=== PATIENT | male | born 1960 | race Caucasian/White ===

== ENCOUNTER 2017-07-08 10:07 | Day surgery (SDC) | payer OTHER ==
[2017-07-05 08:42] VITALS: BMI 27.1
[2017-07-08] MEDS ORDERED: MIDAZOLAM HCL 2 MG/2 ML SINGLE DOSE VIAL ONE ×2 (12:46→12:49)
--- NOTE | 2017-07-08 14:08 | OP ---
Operative Note - Note: Operative Date: 07/08/17 Pre-Operative Diagnosis: Left kidney stone Operation: Left ESWL Surgeon: Moisés Purvis Anesthesia: Fractional
--- NOTE | 2017-07-08 14:14 | OP ---
Operative Note - Note: Operative Date: 07/08/17 Pre-Operative Diagnosis: Left kidney stone Operation: Left ESWL Findings: 4 mm Left mid pole kidney stone Surgeon: Moisés Purvis Anesthesia: Fractional
[2017-07-08 15:44] VITALS: TEMP 98
[2017-07-08 15:47] VITALS: BP 110/70; PULSE 68
--- NOTE | 2017-07-08 23:07 | OP ---
DATE OF OPERATION: 07/08/2017 PREOPERATIVE DIAGNOSIS: Left kidney stone. POSTOPERATIVE DIAGNOSIS: Left kidney stone. PROCEDURE: Left extracorporeal shock wave lithotripsy. ATTENDING: Luly Purvis M.D. ANESTHESIA: General. OPERATION: Patient was brought in the operating room, placed in a supine position on the operating room table. Ultrasonography and fluoroscopy were performed. A 4-mm left mid pole stone was identified. At this point anesthesia and preoperative antibiotics were given. Shockwave lithotripsy was then started. 3000 impulses of 18 joules of power were administered to the stone with excellent fragmentation noted. No complications noted. Patient tolerated the procedure well. DISPOSITION: The patient to the recovery room. LULY OMER M.D. [id number]
== END 2017-07-08 15:15 | disposition home or self-care (01) ==
LOC: JASU-SURG 10:07
PROVIDERS: ATTEND Urology
PROC: 0TF4XZZ Fragmentation in Left Kidney Pelvis, External Approach (ICD-10-PCS; principal; 2017-07-08 11:45)
DX: N20.0 Calculus of kidney (principal)
CPT/HCPCS: 82962; 94760

== ENCOUNTER 2018-04-28 07:07 | Emergency (ER) | payer OTHER ==
[2018-04-28 07:24] VITALS: BP 119/79; PULSE 81; TEMP 98.4; BMI 25.5
--- NOTE | 2018-04-28 07:45 | PDOC ---
History of Present Illness - General Chief Complaint: Headache Stated Complaint: BODY PAIN/HEADACHE/SUGAR PROBLEM Time Seen by Provider: 04/28/18 07:25 History Source: Patient Exam Limitations: Clinical Condition - History of Present Illness Initial Comments: 04/28/18 07:40 Patient with history of diabetes on glyburide and metformin present with complaint of three-day history of intermittent cramping in bilateral hands and elbows after taking excess medication of his metformin. Patient reported he checks his fingerstick at home and is poorly controlled so he increase the dose of metformin. Patient usually takes thousand milligrams by mouth metformin twice a day and takes extra dose again when he relaxes sugar is high. Patient also taking glyburide in the morning with metformin. Patient reported he watch his diet yesterday and took 1 dose of metformin and sis fingerstick was 140 at night. Patient reported he was treated on metformin and thinks he might have symptoms of lactic acidosis. Patient denies shortness of breath, dizziness, palpitations. Patient denies any other symptoms Timing/Duration: other (3 days) Past History - Past Medical History Allergies/Adverse Reactions: Allergies Allergy/AdvReac Type Severity Reaction Status Date / Time Penicillins Allergy "SWELLING" Verified 07/08/17 11:34 Home Medications: Ambulatory Orders Glyburide 5 mg PO BID 08/15/14 Pravastatin Sodium 80 mg PO DAILY 08/15/14 Tamsulosin HCl [Flomax -] 0.4 mg PO HS 08/15/14 metFORMIN HCL [Glucophage] 1,000 mg PO BID 08/15/14 Allopurinol 300 mg PO DAILY 07/05/17 Canagliflozin [Invokana] 300 mg PO DAILY 07/05/17 Anemia: No Asthma: No Cancer: No Cardiac Disorders: No CVA: No COPD: No CHF: No Dementia: No Diabetes: Yes (NIDDM) GI Disorders: Yes (H/O ACID REFLUX) Disorders: No HTN: No Hypercholesterolemia: Yes Liver Disease: No (FATTY LIVER) Seizures: No Thyroid Disease: No - Surgical History Cardiac Surgery: No GI Surgery: No Orthopedic Surgery: Yes (MENISCUS TEARS X3 KATIE) - Suicide/Smoking/Psychosocial Hx Smoking History: Never smoked Have you smoked in the past 12 months: No If you are a former smoker, when did you quit?: 12YRS Information on smoking cessation initiated: No Hx Alcohol Use: No Drug/Substance Use Hx: No Substance Use Type: None, Alcohol Review of Systems - Review of Systems Able to Perform ROS?: Yes Is the patient limited Finnish proficient: No Constitutional: Yes: Malaise. No: Chills, Fever, Weakness HEENTM: No: Blurred Vision, Recent change in vision Respiratory: No: Symptoms reported, See HPI, Cough, Orthopnea, Shortness of Breath, SOB with Exertion, SOB at Rest, Stridor, Wheezing, Productive cough, Hemoptysis, Other Cardiac (ROS): No: Symptoms Reported, See HPI, Chest Pain, Edema, Irregular Heart Rate, Lightheadedness, Palpitations, Syncope, Chest Tightness, Other ABD/GI: No: Constipated, Diarrhea, Nausea, Vomiting, Abdominal cramping Musculoskeletal: Yes: Muscle Weakness (intermittent muscle cramps to b/l hands and elbows) Neurological: Yes: Tingling (b/l hands). No: Headache, Numbness, Paresthesia, Seizure, Weakness, Ataxia All Other Systems: Reviewed and Negative *Physical Exam - Vital Signs Last Vital Signs Temp Pulse Resp BP Pulse Ox 98.4 F 81 16 119/79 100 04/28/18 07:22 04/28/18 07:22 04/28/18 07:22 04/28/18 07:22 04/28/18 07:22 - Physical Exam General Appearance: Yes: Nourished, Appropriately Dressed. No: Apparent Distress HEENT: positive: Normal ENT Inspection, Pharynx Normal Neck: positive: Supple Respiratory/Chest: positive: Lungs Clear, Normal Breath Sounds. negative: Chest Tender, Respiratory Distress, Accessory Muscle Use Cardiovascular: positive: Regular Rhythm, Regular Rate. negative: Murmur Gastrointestinal/Abdominal: positive: Normal Bowel Sounds, Flat, Soft. negative : Tender, Organomegaly Extremity: positive: Normal Capillary Refill, Normal Inspection, Normal Range of Motion Integumentary: positive: Normal Color, Dry, Warm Neurologic: positive: Fully Oriented, Alert, Normal Mood/Affect, Normal Response , Motor Strength 5/5 Moderate Sedation - Procedure Monitoring Vital Signs: Procedure Monitoring Vital Signs Temperature 98.4 F 04/28/18 07:22 Pulse Rate 81 04/28/18 07:22 Respiratory Rate 16 04/28/18 07:22 Blood Pressure 119/79 04/28/18 07:22 O2 Sat by Pulse Oximetry (%) 100 04/28/18 07:22 ED Treatment Course - LABORATORY CBC & Chemistry Diagram: 04/28/18 07:48 04/28/18 07:48 - ADDITIONAL ORDERS Additional order review: Laboratory Results 04/28/18 07:28 POC Glucometer 178 04/28/18 07:28 POC Glucometer 178 Medical Decision Making - Medical Decision Making 04/28/18 07:45 Patient with h/o poorly controlled DM on invacana, glyburide, and metformin and HPL present with complains of intermittent cramping pains and tingling sensation after self-increasing metformin dose due to glucose not controlled. DX: diabettic neuropathy vs lactic acidosis from metformin CBC,CMP lactic acid and electrolytes labs ordered reassess after labs 04/28/18 10:34 labs with no acute findings. Patient stable for discharge with PCP follow-up. Patient educated on diet and better glucose control. Patient voiced understanding and will follow-up with PCP *DC/Admit/Observation/Transfer Diagnosis at time of Disposition: Malaise, Muscle cramp - Discharge Dispostion Disposition: HOME Condition at time of disposition: Stable Decision to Admit order: No - Referrals Referrals: Chris Bergeron MD [Primary Care Provider] - - Patient Instructions Printed Discharge Instructions: How to Take Care of Your Feet If You Have Diabetes, Lifestyle Changes as Effective as Drugs in Preventing Progression to Diabet Additional Instructions: labs was normal . follow-up with PCP. come back to ED if worsening symptoms. Do no take medication more than prescribed. have better diet and decrease sugar intake to help better diabetes - Post Discharge Activity
[2018-04-28 08:02] LABS: BASO % 0.8 % (0-2.0); EOS % 5.4 % (0-4.5); HEMATOCRIT 45.3 % (35.4-49); HEMOGLOBIN 15.8 GM/dL (11.7-16.9); LYMPH % 30.1 % (8-40); MCH 29.6 pg (25.7-33.7); MCHC 34.9 g/dl (32.0-35.9); MEAN CELL VOLUME 84.9 fl (80-96); MEAN PLT VOLUME 8.8 fl (7.5-11.1); MONO % 7.6 % (3.8-10.2); NEUT % 56.1 % (42.8-82.8); PLATELET COUNT 177 K/MM3 (134-434); RBC 5.34 M/mm3 (4.00-5.60); RDW 14.2 % (11.9-15.9); WHITE BLOOD COUNT 6.8 K/mm3 (4.0-10.0)
[2018-04-28 09:08] LABS: ALBUMIN 4.3 g/dl (3.4-5.0); ALK PHOS 49 U/L (45-117); ANION GAP 7 MMOL/L (8-16); BILIRUBIN,TOTAL 0.4 mg/dL (0.2-1); BLOOD UREA NITROGEN 25 mg/dL (7-18); CALCIUM 8.6 mg/dL (8.5-10.1); CHLORIDE 106 mmol/L (98-107); CO2 24 mmol/L (21-32); GLUCOSE,RANDOM 166 mg/dL (74-106); POTASSIUM 4.4 mmol/L (3.5-5.1); SGOT/AST 17 U/L (15-37); SGPT/ALT 32 U/L (13-61); SODIUM 137 mmol/L (136-145); TOT PROT 7.7 g/dl (6.4-8.2)
== END 2018-04-28 10:33 | disposition home or self-care (01) ==
LOC: JER 07:07
DX: E11.65 Type 2 diabetes mellitus with hyperglycemia (principal); Z79.84 Long term (current) use of oral hypoglycemic drugs; E78.00 Pure hypercholesterolemia, unspecified; K21.9 Gastro-esophageal reflux disease without esophagitis
CPT/HCPCS: 36415; 80053; 82436; 82962; 83605; 84133; 84300; 85025; 99281-25

== ENCOUNTER 2018-11-24 07:12 | Day surgery (SDC) | payer OTHER ==
[2018-11-21 10:20] VITALS: BMI 26.4
[2018-11-24] MEDS ORDERED: MIDAZOLAM HCL 2 MG/2 ML SINGLE DOSE VIAL ONE ×2 (09:12→09:20)
[2018-11-24 10:10] VITALS: TEMP 97.6
[2018-11-24 10:34] VITALS: BP 105/64; PULSE 81
--- NOTE | 2018-11-24 12:06 | OP ---
Operative Note - Note: Operative Date: 11/24/18 Pre-Operative Diagnosis: Right renal stone Operation: Right ESWL Findings: 8 mm mid pole Right renal stone Post-Operative Diagnosis: Same as Pre-op Surgeon: Moisés Purvis Anesthesia: Fractional Estimated Blood Loss (mls): 0 Drains, Volume Out (mls): 0 Operative Report Dictated: Yes
--- NOTE | 2018-11-24 20:46 | OP ---
DATE OF OPERATION: 11/24/2018 PREOPERATIVE DIAGNOSIS: Right renal stone. POSTOPERATIVE DIAGNOSIS: Right renal stone. PROCEDURE: Right extracorporeal shock-wave lithotripsy. ATTENDING: Moisés Dupree MD ANESTHESIA: Fractional. DESCRIPTION OF PROCEDURE: The patient was brought in the operating room and placed in a supine position on the operating room table. Ultrasonography and fluoroscopy were performed. Two stones were noted, an 8-mm right mid pole stone as well as a 7 plus-mm lower pole stone. It was decided that to maximize the efficacy of stone destruction, 1 stone would be targeted. It was decided to target the mid pole stone; 2500 impulses at 17 joules of power were administered to the 8-mm mid pole stone. Excellent fragmentation was noted under real time ultrasonography and fluoroscopy. No complications were noted. The patient tolerated this procedure very well. DISPOSITION OF THE PATIENT: To the recovery room. Josef [id number]
== END 2018-11-24 10:45 | disposition home or self-care (01) ==
LOC: JASU-SURG 07:12
PROVIDERS: ATTEND Urology
PROC: 0TF3XZZ Fragmentation in Right Kidney Pelvis, External Approach (ICD-10-PCS; principal; 2018-11-24 08:45)
DX: N20.0 Calculus of kidney (principal)
CPT/HCPCS: 82962

== ENCOUNTER 2020-03-22 05:55 | Day surgery (SDC) | payer OTHER ==
[2020-03-17 16:36] VITALS: BMI 26.7
[2020-03-22] MEDS ORDERED: TRANEXAMIC ACID 1000 MG/10 ML VIAL IVPUSH ONE (06:52)
[2020-03-22] MEDS ORDERED: BUPIVICAINE 0.25%/MORPH PF/KETOROLAC - 51ML DISP.SYRINGE IA ONE ×3 (06:52→09:20)
[2020-03-22] MEDS ORDERED: CELECOXIB 200 MG CAPSULE PO ONE (06:52)
[2020-03-22] MEDS ORDERED: CEFAZOLIN 2 GM in DEXTROSE 5%-WATER - 50 ML IVPB ONE (06:52)
[2020-03-22] MEDS ORDERED: BUPIVACAINE LIPOSOME/PF (EXPAREL) 266 MG/20 ML VIAL ONE (07:01)
[2020-03-22] MEDS ORDERED: SODIUM CHLORIDE 0.9% P/F 10 ML VIAL IJ ONE (07:01)
[2020-03-22] MEDS ORDERED: MIDAZOLAM HCL 2 MG/2 ML SINGLE DOSE VIAL ONE ×2 (07:01→07:49)
[2020-03-22] MEDS ORDERED: THROMBIN (RECOMBINANT) 5,000 UNIT VIAL TP ONE (07:09)
[2020-03-22] MEDS ORDERED: ceFAZolin SODIUM 1 GM VIAL ONE ×3 (07:09→07:58)
[2020-03-22] MEDS ORDERED: PROPOFOL 20 ML ONE ×2 (07:49)
[2020-03-22] MEDS ORDERED: ALLOPURINOL 300 MG TABLET (FP) PO PRN (07:59)
[2020-03-22] MEDS ORDERED: MAG HYDROX/AL HYDROX/SIMETH 30 ML UNIT-DOSE CUP PO PRN (08:00)
[2020-03-22] MEDS ORDERED: LACTATED RINGERS SOLUTION 1,000 ML IV SCH (08:00)
[2020-03-22] MEDS ORDERED: ONDANSETRON 4 MG/2 ML VIAL IVPUSH PRN (08:00)
[2020-03-22] MEDS ORDERED: traMADol HCL 50 MG TABLET PO PRN (08:58)
[2020-03-22] MEDS ORDERED: oxyCODONE HCL 5 MG TABLET PO PRN (08:58)
[2020-03-22] MEDS ORDERED: MULTIVITAMINS (DAILY MVI) TABLET (FP) PO SCH (10:00)
[2020-03-22] MEDS ORDERED: CANAGLIFLOZIN 300 MG PO SCH (10:00)
[2020-03-22] MEDS ORDERED: PANTOPRAZOLE 40 MG TABLET PO SCH (10:00)
[2020-03-22] MEDS ORDERED: PATIENT'S OWN MEDICATION (NON-FORMULARY) (Insulin Glargine,Hum.Rec.Anlog [Lantus] 100 UNIT SQ SCH (10:00)
[2020-03-22] MEDS ORDERED: METFORMIN HCL 1000 MG PO SCH (10:00)
[2020-03-22] MEDS ORDERED: ACETAMINOPHEN 325 MG TABLET (FP) ONE (10:32)
[2020-03-22] MEDS: oxyCODONE HCL 5 MG TABLET PO PRN ×2 (14:02→21:32)
[2020-03-22] MEDS ORDERED: PT OWN MED DRAWER 7, Y5N ONE (16:17)
[2020-03-22] MEDS: metFORMIN HCL 500 MG TABLET (FP) PO SCH (16:38)
[2020-03-22] MEDS: CEFAZOLIN 2 GM/D5W 2 GM/50 ML ML IVPB SCH (16:39)
[2020-03-22] MEDS: ACETAMINOPHEN 325 MG TABLET (FP) PO SCH ×2 (16:39→21:31)
[2020-03-22] MEDS: glyBURIDE 5 MG TABLET PO SCH (20:00)
[2020-03-22] MEDS: SENNOSIDES/DOCUSATE COMBO (SENNA PLUS) TABLET (UD) PO SCH (21:31)
[2020-03-22] MEDS ORDERED: TAMSULOSIN HCL 0.4 MG CAP PO SCH (22:00)
[2020-03-22] MEDS ORDERED: ATORVASTATIN CA 40 MG TABLET (FP) PO SCH (22:00)
[2020-03-23] MEDS: CEFAZOLIN 2 GM/D5W 2 GM/50 ML ML IVPB SCH ×2 (00:36→10:00)
[2020-03-23] MEDS: oxyCODONE HCL 5 MG TABLET PO PRN ×2 (04:11→07:24)
[2020-03-23] MEDS: ACETAMINOPHEN 325 MG TABLET (FP) PO SCH ×2 (04:11→11:02)
[2020-03-23 06:20] VITALS: BP 123/64; PULSE 82; TEMP 97.6
[2020-03-23] MEDS: metFORMIN HCL 500 MG TABLET (FP) PO SCH (06:27)
[2020-03-23] MEDS: glyBURIDE 5 MG TABLET PO SCH (07:00)
[2020-03-23] MEDS ORDERED: INSULIN (LEVEMIR) 100 UNITS/ML UNITS SQ SCH (07:00)
[2020-03-23] MEDS ORDERED: ASPIRIN 325 MG TABLET PO SCH (08:00)
[2020-03-23] MEDS: SENNOSIDES/DOCUSATE COMBO (SENNA PLUS) TABLET (UD) PO SCH (11:01)
[2020-03-25] MEDS ORDERED: PATIENT'S OWN MEDICATION (NON-FORMULARY) (Dulaglutide [Trulicity] 1.5 MG/0.5 ML Pen.Injctr SQ SCH (08:00)
== END 2020-03-23 12:46 | disposition home health service (06) ==
LOC: FASU 05:55 → FASUSAT 05:55 → FM/S 14:45 → FASUSAT 03-23 12:46
PROVIDERS: ATTEND Orthopaedic Surgery
PROC: 8E0YXBZ Computer Assisted Procedure of Lower Extremity (ICD-10-PCS; 2020-03-22)
PROC: 8E0Y0CZ Robotic Assisted Procedure of Lower Extremity, Open Approach (ICD-10-PCS; 2020-03-22)
PROC: 0SRD0L9 Replacement of Left Knee Joint with Medial Unicondylar Synthetic Substitute, Cemented, Open Approach (ICD-10-PCS; principal; 2020-03-22 08:34)
DX: M17.12 Unilateral primary osteoarthritis, left knee (principal)
CPT/HCPCS: 20985; 27446; C1776; S2900; 73560-TC-LT-FY; 82962; 94760; 97010-GP; 97116-GP; 97162-GP

== ENCOUNTER 2020-08-15 04:39 | Day surgery (SDC) | payer OTHER ==
[2020-08-12 10:28] VITALS: BMI 26.4
[2020-08-15] MEDS ORDERED: MIDAZOLAM HCL 2 MG/2 ML SINGLE DOSE VIAL ONE (11:53)
[2020-08-15] MEDS ORDERED: oxyCODONE HCL 5 MG TABLET PO PRN (12:53)
[2020-08-15] MEDS ORDERED: ONDANSETRON 4 MG/2 ML VIAL IVPUSH PRN (12:53)
[2020-08-15] MEDS ORDERED: ACETAMINOPHEN 325 MG TABLET (FP) PO PRN (12:53)
[2020-08-15] MEDS ORDERED: LACTATED RINGERS SOLUTION 1,000 ML IV SCH (13:00)
[2020-08-15 13:49] VITALS: BP 117/73; PULSE 63; TEMP 97.7
== END 2020-08-15 13:30 | disposition home or self-care (01) ==
LOC: JASU-SURG 04:39
PROVIDERS: ATTEND Urology
PROC: 0TF4XZZ Fragmentation in Left Kidney Pelvis, External Approach (ICD-10-PCS; principal; 2020-08-15 11:30)
DX: N20.0 Calculus of kidney (principal)
CPT/HCPCS: 82962

== ENCOUNTER 2020-10-10 04:28 | Day surgery (SDC) | payer OTHER ==
[2020-10-07 08:37] VITALS: BMI 26.4
[2020-10-10 10:00] VITALS: TEMP 98.5
[2020-10-10] MEDS ORDERED: KETOROLAC TROMETHAMINE 30 MG/1 ML VIAL ONE (13:17)
[2020-10-10] MEDS ORDERED: PROPOFOL 20 ML ONE ×2 (13:17)
[2020-10-10] MEDS ORDERED: LIDOCAINE HCL/PF 2% SDV 5ML VIAL ONE (13:17)
[2020-10-10 15:10] VITALS: BP 138/75; PULSE 85
== END 2020-10-10 15:15 | disposition home or self-care (01) ==
LOC: JASU-SURG 04:28
PROVIDERS: ATTEND Urology
PROC: 0TF3XZZ Fragmentation in Right Kidney Pelvis, External Approach (ICD-10-PCS; principal; 2020-10-10 11:30)
DX: N20.0 Calculus of kidney (principal)
CPT/HCPCS: 82962

== ENCOUNTER 2021-11-20 05:10 | Day surgery (SDC) | payer OTHER ==
[2021-11-15 16:09] VITALS: BMI 26.4
[2021-11-20] MEDS ORDERED: MIDAZOLAM HCL 2 MG/2 ML SINGLE DOSE VIAL ONE (07:29)
[2021-11-20] MEDS ORDERED: oxyCODONE HCL 5 MG TABLET PO PRN ×2 (08:02)
[2021-11-20] MEDS ORDERED: ONDANSETRON 4 MG/2 ML VIAL IVPUSH PRN (08:02)
[2021-11-20] MEDS ORDERED: PROPOFOL 20 ML ONE (08:13)
[2021-11-20] MEDS ORDERED: LACTATED RINGERS SOLUTION 1,000 ML IV SCH (08:15)
[2021-11-20] MEDS ORDERED: KETOROLAC TROMETHAMINE 30 MG/1 ML VIAL ONE (08:17)
[2021-11-20 08:55] VITALS: RESP 18; TEMP 97.9
[2021-11-20 09:22] VITALS: BP 123/73; PULSE 82
== END 2021-11-20 09:45 | disposition home or self-care (01) ==
LOC: JASU-SURG 05:10
PROVIDERS: ATTEND Urology
PROC: 0TF3XZZ Fragmentation in Right Kidney Pelvis, External Approach (ICD-10-PCS; principal; 2021-11-20 08:00)
DX: N20.0 Calculus of kidney (principal)
CPT/HCPCS: 82962